=== PATIENT | male | born 1965 | race Caucasian/White ===

== ENCOUNTER 2024-01-31 13:04 | Outpatient (OUT) | payer BC, SELFPAY ==
[2024-02-01 04:10] LABS: PSA, Free 0.43 ng/mL; Prostate Specific Ag 2.8 ng/mL (0.0-4.0)
== END 2024-01-31 13:05 | disposition home or self-care (01) ==
LOC: LAB 13:08
PROVIDERS: PCP Family Medicine; Visit Provider Urology
DX: R97.20 Elevated prostate specific antigen [PSA] (principal)
CPT/HCPCS: 36415; 84153; 84154

== ENCOUNTER 2024-02-17 15:01 | Outpatient (OUT) | payer BC, SELFPAY ==
--- NOTE | 2024-02-17 15:06 | XR_ITS ---
The [address] [address] Patient Name: MANAV HERNANDEZ MRN: [id number] date: 1965 Sex: M Assigned Patient Location: [facility] Current Patient Location: Accession/Order Number: [id number] Exam Date: 02/17/2024 15:16 Report Date: 02/18/2024 09:32 At the request of: LOR MYLES Procedure: XR abdomen 1V EXAMINATION: XR abdomen 1V HISTORY: Kidney stone N20.0 centimeters/follow-up kidney stones COMPARISON: No relevant comparison available. FINDINGS: KIDNEY/URETER - RIGHT: No visible renal or ureteral calcifications. KIDNEY/URETER - LEFT: No visible renal or ureteral calcifications. PELVIS: No visible ureteral stones. BOWEL: No abnormal dilation or deviation. BONES: No acute abnormality. OTHER: Negative. No abnormal gaseous collections. XR/XR abdomen 1V IMPRESSION: 1. No appreciable urinary tract calculi. Evaluation of right kidney is limited by overlying bowel content. Electronically authenticated by: MANAV GOLDEN Date: 02/18/2024 09:32
== END 2024-02-17 15:02 | disposition home or self-care (01) ==
LOC: RAD 15:02
PROVIDERS: PCP Family Medicine; Visit Provider Physician Assistant
DX: N20.0 Calculus of kidney (principal)
CPT/HCPCS: 74018

== ENCOUNTER 2025-02-08 12:47 | Outpatient (OUT) | payer BC, SELFPAY ==
[2025-02-09 04:08] LABS: PSA, Free 0.47 ng/mL; Prostate Specific Ag 2.9 ng/mL (0.0-4.0)
== END 2025-02-08 12:48 | disposition home or self-care (01) ==
LOC: LAB 12:51
PROVIDERS: PCP Family Medicine; Visit Provider Physician Assistant
DX: R97.20 Elevated prostate specific antigen [PSA] (principal)
CPT/HCPCS: 36415; 84153; 84154